=== PATIENT | female | born 1985 | race Caucasian/White ===

== ENCOUNTER 2023-03-30 09:43 | Outpatient (AMB) | payer OTHER, SELFPAY ==
--- NOTE | 2023-03-30 09:51 | MHC.PC.OV ---
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 pt thinks she had a pap at [facility] in 2020 and will call for appt Is last menstrual period known: Yes Last menstrual period: 03/25/23 Allergies Sulfa (Sulfonamide Antibiotics) Allergy (Intermediate, Verified 03/30/23 10:12) Eye Swelling Medication List - Last Reconciled 03/30/23 by Isela Roland MD No Known Home Meds Tobacco use date assessed: 03/30/23 Dental Screening Dental Screen Date: 03/30/23 Did you have a dental visit in the last 12 months?: No Did you have a dental problem in the last 6 months where you did not have access to dental care?: No Was dental information given to patient?: No 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 She has no known medical history. She goes to [facility] for her routine Pap, last done 2019, per patient. She is up-to-date with her COVID booster and her flu shot , and states that she received her Tdap when she was with her child in 2019. She has no specific complaints, except for having intermittent episodes of fatigue over the last several months. [facility] Medical History (Updated 04/01/23 @ 17:35 by Isela Roland MD) No pertinent past medical history Surgical History (Updated 04/01/23 @ 17:35 by Isela Roland MD) No pertinent past surgical history Family History (Updated 03/30/23 @ 10:19 by Isela Roland MD) Maternal Uncle Mental health disorder Maternal Aunt Mental health disorder Breast cancer Lung cancer Maternal Grandmother Breast cancer Social History Housing: House Patient Tobacco Use Status: Never used Tobacco e-Cigarette/Vaping Use: Never Used Second Hand Smoke Exposure: No service: No Current occupational status: employed Current occupation: [employer] Current occupational exposures/hazards: No Cognitive needs: No Hearing needs: No Vision needs: No Female Reproductive History Menstrual Date of last menstrual period: 03/25/23 Questionnaire PHQ-9 Over the last 2 weeks, how often have you been bothered by any of the following problems? 1. Little interest or pleasure in doing things: not at all 2. Feeling down, depressed, or hopeless: not at all 3. Trouble falling or staying asleep, or sleeping too much: not at all 4. Feeling tired or having little energy: nearly every day 5. Poor appetite or overeating: not at all 6. Feeling bad about yourself - or that you are a failure or have let yourself or your family down: not at all 7. Trouble concentrating on things, such as reading the newspaper or watching television: not at all 8. Moving or speaking so slowly that other people could have noticed. Or the opposite - being so fidgety or restless that you have been moving around a lot more than usual: not at all 9. Thoughts that you would be better off or of hurting yourself in some way: not at all Total score: 3 Depression Screening Interpretation: Negative Depression Screening Done: Yes 27606 - PHQ-9 Billing: Yes Source: Developed by Drs. Yony Blevins, Ashley Cameron, Hubert Peter and colleagues, with an educational adelfo from [employer]. Thrive Questionnaire Date Thrive assessed: 03/30/23 I am a: Patient What is your living situation today?: I have a steady place to live Within the past 12 months, did the food you bought not last and you didn't have the money to get more?: Never true Within the past 12 months, did you worry whether your food would run out before you got money to buy more?: Never true Do you have trouble paying for medicines?: No Do you have trouble getting transportation to medical appointments?: No Do you have trouble paying your heating and electricity bill?: No Do you have trouble taking care of your child, family member or friend?: No Do you have trouble with day-to-day activities such as bathing, preparing meals, shopping, managing finances, etc.?: No Are you currently unemployed and looking for a job?: No Are you interested in more education?: No AUDIT C Alcohol Use Questionnaire (AUDIT-C) 1. How often do you have a drink containing alcohol?: 2-3 times a week 2. How many drinks containing alcohol do you have on a typical day when you are drinking?: 1 or 2 3. How often do you have six or more drinks on one occasion?: Never Total Score: 3 BRYAN-7 AMB Questionnaire BRYAN-7 Date BRYAN - 7 assessed: 03/30/23 Feeling nervous, anxious, or on edge: 0 = Not at all Not being able to stop or control worryin = Not at all Worrying too much about different things: 0 = Not at all Trouble relaxin = Not at all Being so restless that it is hard to sit still: 0 = Not at all Becoming easily annoyed or irritable: 0 = Not at all Feeling afraid as if something awful might happen: 0 = Not at all Total BRYAN-7 score (0-4 normal; 5-9 mild; 10-14 moderate; 15-21 severe): 0 Source: Developed by Drs. Yony Blevins, Ashley Cameron, Hubert Peter and colleagues, with an educational adelfo from [employer]. BRYAN-7 Assessment Billing BRYAN-7 Assessment Tool: BRYAN-7 Assessment 55968 Review of Systems Const Denies body aches, Denies fatigue, Denies fever(s), Denies headache(s) and Denies weakness Eyes Denies change in vision, Denies eye discharge and Denies itchy eyes ENT Denies dizziness, Denies headache(s), Denies nasal congestion, Denies nasal discharge and Denies sore throat Card Denies chest pain, Denies lightheadedness, Denies palpitations and Denies dyspnea Resp Denies chest congestion, Denies cough, Denies dyspnea and Denies wheezing GI Denies abdominal pain, Denies change in bowel habits and Denies heartburn Denies hematuria, Denies urinary frequency, Denies dysuria and Denies urinary urgency Musc Reports no additional complaints Skin/Breast Denies breast pain, Denies breast mass, Denies lesions and Denies rash Neuro Denies dizziness, Denies headache(s) and Denies weakness Psych Reports no additional complaints Endo Denies fatigue, Denies polydipsia, Denies polyuria and Denies palpitations Cong/Lymph Denies easy bruising Aller/Immun Denies itchy eyes, Denies seasonal rhinorrhea and Denies wheezing Physical exam (Primary Care) Vital Signs: Last Vital Signs Pulse 84 03/30/23 09:52 BP 102/68 03/30/23 09:52 Pulse Ox 100 03/30/23 09:52 Oxygen Delivery Method Room Air 03/30/23 09:52 BMI result Body Mass Index 24.0 Tobacco/Smoking Status: Tobacco use Status Tobacco use date assessed 03/30/23 03/30/23 09:59 Patient Tobacco Use Status Never used Tobacco 03/30/23 09:59 e-Cigarette/Vaping Use Never Used 03/30/23 09:59 PHQ-9: PHQ-9 Score PHQ-9: Total score 3 03/30/23 10:34 Depression Screening Interpretation: Negative Thrive Assessment: Date of Thrive Assessment Date Thrive assessed 03/30/23 03/30/23 10:34 Const General: no acute distress and alert Nutritional Appearance: average body habitus Orientation/consciousness: patient oriented x3 HENMT Head: Yes normocephalic and Yes atraumatic Ears: external ears normal, TM's normal bilaterally and EAC's normal General nose exam: Normal external nose present and No nasal discharge present Face and sinus: Yes face symmetric Mouth: Normal oral and palatal mucosa present, lip normal, tongue normal, oropharynx normal and moist mucous membranes Eyes General: appearance normal, both eyes and all related structures Eyelids: Yes eyelids normal Conjunctivae: conjunctivae normal Sclerae: sclerae normal Pupils: Equal, round and reactive pupils present EOM: EOMs intact bilaterally Neck Neck: Yes full ROM, Yes no lymphadenopathy and Yes supple Thyroid: Thyroid normal Chest Chest palpation & inspection: normal inspection of the chest Breast/axilla inspection: normal inspection of the breasts Breast/axilla palpation: normal palpation of the breasts Resp Effort & Inspection: normal respiratory effort and able to speak in complete sentences Auscultation: clear to auscultation bilaterally Cardio Rate: regular rate Rhythm: regular rhythm Heart sounds: S1 normal heart sound present and S2 normal heart sound present GI Palpation (GI): Soft to palpation, nontender, no guarding and no masses Auscultation: normal bowel sounds General: Yes no CVA tenderness and Yes deferred (Will be scheduling her own appointment with OBGYN looking to going [facility]) Back/Spine/Pelvis Back: no CVA tenderness and No back tenderness Skin General skin exam: no rashes or lesions noted Neuro General: patient oriented x3, gait normal, moves all extremities, Normal light touch and pain sensation, no focal motor deficits and CN's II-XI intact bilaterally Cranial nerves: Yes Equal, round and reactive pupils present Cognition (Neuro): normal cognition Gait exam (Neuro): Normal gait present Motor exam (neuro): 5/5 motor strength present throughout Extrem General: Yes normal to inspection, Yes full ROM, Yes no joint enlargement, Yes no pedal edema and Yes normal gait Psych Appearance: grossly normal and well kempt Mental Status: mental status grossly normal Speech and movement: Normal speech and movement present Affect: normal affect Attitude: cooperative Thought process: Normal thought process present Thought content: Normal thought content present Assessment and Plan Assessment & Plan (1) Annual visit for general adult medical examination with abnormal findings: Code(s): Z. - Encounter for general adult medical examination with abnormal findings Plan: Will check appropriate labs. Recommended dental visit every 6 months and regular eye exams, at least every 2 years. Take adequate calcium in diet and vitamin-D 3 at 2000 IU per cap once a day, in addition to weight-bearing exercises to help maintain good muscle tone and weight control. Instructed to do self-breast exam, and recommended to get yearly mammogram, starting at age 40. Patient states she will schedule appointment with OBGYN at [facility] for her routine Pap and pelvic exam. She is up-to-date with her COVID booster, flu shot and her Tdap. (2) Fatigue: Code(s): R53.83 - Other fatigue Qualifiers: Fatigue type: unspecified Qualified Code(s): R53.83 - Other fatigue Plan: Labs ordered today to check CBC, thyroid stimulating hormone with free T4, vitamin B12 and folic acid level, vitamin-D, compressive metabolic panel and Lyme titer. Orders: Orders TSH reflex Free T4 03/30/23 R53.83 - Other fatigue, Z. - Encounter for general adult medical examination with abnormal findings Vitamin B12 and Folate 03/30/23 R53.83 - Other fatigue, Z. - Encounter for general adult medical examination with abnormal findings Lipid Panel 03/30/23 R53.83 - Other fatigue, Z. - Encounter for general adult medical examination with abnormal findings Vitamin D 25-OH Total 03/30/23 R53.83 - Other fatigue, Z00.01 - Encounter for general adult medical examination with abnormal findings Complete Blood Count Auto Diff 03/30/23 R53.83 - Other fatigue, Z00.01 - Encounter for general adult medical examination with abnormal findings Comprehensive [place]. Panel Fast 03/30/23 R53.83 - Other fatigue, Z00.01 - Encounter for general adult medical examination with abnormal findings Lyme IgG/IgM w/reflex to WB 03/30/23 R53.83 - Other fatigue Coding Level of Care Code New Pt Prev Care 18-39yr([id number] Diagnoses Annual visit for general adult medical examination with abnormal findings Z00.01 Fatigue, unspecified type R53.83 Fatigue type: unspecified Additional Codes BRYAN-7 Assessment Billing - BRYAN-7 Assessment Tool: BRYAN-7 Assessment [id number] ([id number])
[2023-03-30 09:52] VITALS: BP 102/68; PULSE 84; O2SAT 100; BMI 24.0
== END 2023-03-30 10:32 | disposition home or self-care (01) ==
PROVIDERS: PCP Internal Medicine; Visit Provider Internal Medicine
DX: Z00.00 Encounter for general adult medical examination without abnormal findings (principal); R53.83 Other fatigue
CPT/HCPCS: 99385

== ENCOUNTER 2023-04-02 08:02 | Outpatient (REF) | payer OTHER, SELFPAY ==
[2023-04-02 12:03] LABS: MANUAL DIFF FLAG NO
[2023-04-02 12:13] LABS: Basophils Absolute Auto 0.1 X10*3/uL (0.0-0.2); Basophils Percent Auto 1.1 % (0-2); Eosinophils Absolute Auto 0.1 X10*3/uL (0.0-0.4); Eosinophils Percent Auto 2.5 % (0-4); Hematocrit 43.8 % (37.0-47.0); Hemoglobin 14.7 g/dl (12.0-16.0); Imm Gran Abs Auto 0.02 X10*3/uL (0.00-0.03); Imm Gran Pct Auto 0.4 % (0.0-0.4); Lymphocytes Absolute Auto 1.6 X10*3/uL (1.2-4.9); Lymphocytes Percent Auto 33.8 % (20-40); Mean Corpuscular HGB Conc 33.6 g/dl (31.0-35.0); Mean Corpuscular Hemoglobin 30.2 pg (27.0-33.0); Mean Corpuscular Volume 89.9 fL (80.0-98.0); Mean Platelet Volume 9.9 fL (9.4-12.3); Monocytes Absolute Auto 0.3 X10*3/uL (0.1-1.2); Monocytes Percent Auto 7.1 % (2-11); Neutrophils Absolute Auto 2.6 x10*3/uL (2.0-8.3); Neutrophils Percent Auto 55.1 % (45-73); Platelet Count 307 X10*3/uL (160-400); Red Blood Count 4.87 X10*6/uL (4.20-5.50); Red Cell Distribution Width 11.9 % (11.0-16.0); White Blood Count 4.8 X10*3/uL (4.8-10.8)
[2023-04-02 12:53] LABS: Alanine Aminotransferase 9 U/L (0-31); Albumin Level 4.1 g/dL (3.5-5.0); Alkaline Phosphatase 45 U/L (39-117); Anion Gap 12 (12-20); Aspartate Amino Transferase 17 U/L (5-31); Bilirubin Total 0.4 mg/dL (0.0-1.0); Blood Urea Nitrogen 11 mg/dL (9-16); Calcium 9.4 mg/dL (8.4-10.2); Carbon Dioxide 26 mmol/L (22-29); Chloride 104 mmol/L (96-108); Cholesterol 202 mg/dL (<200); Estimated Glomerular Filt Rate > 60; Glucose Fasting 83 mg/dL (60-99); HDL Cholesterol 58 mg/dL (>40); LDL Cholesterol Calculated 121 mg/dL (<100); Sodium 138 mmol/L (135-145); Total Protein 7.5 g/dL (6.5-8.0); Triglycerides 117 mg/dL (<150)
[2023-04-02 12:55] LABS: TSH reflex Free T4 2.01 uIU/mL (0.32-4.0); Vitamin D 25-OH Total 56.5 ng/mL (>30)
[2023-04-02 13:00] LABS: Folate 11.1 ng/mL (> or = 4.0); Vitamin B12 678 pg/mL (200-900)
[2023-04-05 05:23] LABS: Lyme Abs Screen <0.90 index
== END 2023-04-02 08:03 | disposition home or self-care (01) ==
LOC: HO.HMGCLDS 08:02
PROVIDERS: PCP Internal Medicine; Visit Provider Internal Medicine
DX: Z00.01 Encounter for general adult medical examination with abnormal findings (principal); R53.83 Other fatigue
CPT/HCPCS: 36415; 80053; 80061; 82306; 82607; 82746; 84443; 85025; 86617; 86618

== ENCOUNTER 2024-03-31 08:08 | Outpatient (REF) | payer OTHER, SELFPAY ==
[2024-03-31 10:37] LABS: Cholesterol 201 mg/dL (<200); Glucose Fasting 88 mg/dL (60-99); HDL Cholesterol 66 mg/dL (>40); LDL Cholesterol Calculated 115 mg/dL (<100); Triglycerides 102 mg/dL (<150)
== END 2024-03-31 08:09 | disposition home or self-care (01) ==
LOC: HO.HMGCLDS 08:08
PROVIDERS: PCP Internal Medicine; Visit Provider Internal Medicine
DX: Z13.220 Encounter for screening for lipoid disorders (principal); Z13.1 Encounter for screening for diabetes mellitus
CPT/HCPCS: 36415; 80061; 82947

== ENCOUNTER 2024-04-04 14:53 | Outpatient (AMB) | payer OTHER, SELFPAY ==
--- NOTE | 2024-04-04 14:57 | A.OFFPC_ITS ---
Vital Signs 04/04/24 14:58 Height 5 ft 7 in Weight 163 lb BMI 25.5 BP 110/70 Blood Pressure Location Rt brachial Position Sitting Pulse 64 Pulse Source Pulse Oximeter Pulse Oximetry (%) 98 Oxygen Delivery Method Room Air Intake Visit Reasons: PE Intake Note: pt is here for annual exam Sub Master Required: No Allergies Sulfa (Sulfonamide Antibiotics) Allergy (Intermediate, Verified 04/04/24 14:58) Eye Swelling Medication List - Last Reconciled 04/04/24 by Serina Camarillo NP No Known Home Meds Tobacco use date assessed: 04/04/24 Dental Screening Dental Screen Date: 04/04/24 Did you have a dental visit in the last 12 months?: Yes Did you have a dental problem in the last 6 months where you did not have access to dental care?: No Was dental information given to patient?: Patient has dentist HPI HPI Comments History of Present Illness Details 38 y/o female patient who presents today for PE. She is a patient of Dr. Roland. Patient is healthy with medical problems and she does not take routine medications. LMP: Currently on her period. Sexually active with 1 male partner - uses condoms. Last PAP: 2019 NILM Neg HPV PFSH Medical History No pertinent past medical history Surgical History No pertinent past surgical history Family History Maternal Uncle Mental health disorder Maternal Aunt Mental health disorder Breast cancer Lung cancer Maternal Grandmother Breast cancer Social History Housing: House Patient Tobacco Use Status: Never used Tobacco e-Cigarette/Vaping Use: Never Used Second Hand Smoke Exposure: No service: No Current occupational status: employed Current occupation: [employer] Current occupational exposures/hazards: No Cognitive needs: No Hearing needs: No Vision needs: No Questionnaire PHQ-9 Over the last 2 weeks, how often have you been bothered by any of the following problems? 1. Little interest or pleasure in doing things: not at all 2. Feeling down, depressed, or hopeless: not at all 3. Trouble falling or staying asleep, or sleeping too much: not at all 4. Feeling tired or having little energy: not at all 5. Poor appetite or overeating: not at all 6. Feeling bad about yourself - or that you are a failure or have let yourself or your family down: not at all 7. Trouble concentrating on things, such as reading the newspaper or watching television: not at all 8. Moving or speaking so slowly that other people could have noticed. Or the opposite - being so fidgety or restless that you have been moving around a lot more than usual: not at all 9. Thoughts that you would be better off or of hurting yourself in some way: not at all Total score: 0 Depression Screening Interpretation: Negative Depression Screening Done: Yes 83393 - PHQ-9 Billing: Yes Source: Developed by Drs. Yony Blevins, Ashley Cameron, Hubert Peter and colleagues, with an educational adelfo from [employer]. Thrive Questionnaire Date Thrive assessed: 04/04/24 I am a: Patient What is your living situation today?: I have a steady place to live Within the past 12 months, did the food you bought not last and you didn't have the money to get more?: I choose not to answer this question Within the past 12 months, did you worry whether your food would run out before you got money to buy more?: I choose not to answer this question Do you have trouble paying for medicines?: I choose not to answer this question Do you have trouble getting transportation to medical appointments?: I choose not to answer this question Do you have trouble paying your heating and electricity bill?: I choose not to answer this question Do you have trouble taking care of your child, family member or friend?: I choose not to answer this question Do you have trouble with day-to-day activities such as bathing, preparing meals, shopping, managing finances, etc.?: I choose not to answer this question Are you currently unemployed and looking for a job?: I choose not to answer this question Are you interested in more education?: I choose not to answer this question Please select the resources that you would like help with: None Currently or been in a relationship where the following occur: No concerns reported THRIVE Score: 0 AUDIT C Alcohol Use Questionnaire (AUDIT-C) 1. How often do you have a drink containing alcohol?: Monthly or less 2. How many drinks containing alcohol do you have on a typical day when you are drinking?: 1 or 2 3. How often do you have six or more drinks on one occasion?: Never Total Score: 1 Score Reviewed/Action Taken: Yes BRYAN-7 AMB Questionnaire BRYAN-7 Date BRYAN - 7 assessed: 04/04/24 Feeling nervous, anxious, or on edge: 0 = Not at all Not being able to stop or control worryin = Not at all Worrying too much about different things: 0 = Not at all Trouble relaxin = Not at all Being so restless that it is hard to sit still: 0 = Not at all Becoming easily annoyed or irritable: 0 = Not at all Feeling afraid as if something awful might happen: 0 = Not at all Total BRYAN-7 score (0-4 normal; 5-9 mild; 10-14 moderate; 15-21 severe): 0 Source: Developed by Drs. Yony Blevins, Ashley Cameron, Hubert Peter and colleagues, with an educational adelfo from [employer]. BRYAN-7 Assessment Billing BRYAN-7 Assessment Tool: BRYAN-7 Assessment 26028 Review of Systems Const All systems reviewed & are unremarkable except as noted in HPI and below Physical exam (Primary Care) Vital Signs: Last Vital Signs Pulse 64 04/04/24 14:58 BP 110/70 04/04/24 14:58 Pulse Ox 98 04/04/24 14:58 Oxygen Delivery Method Room Air 04/04/24 14:58 BMI result Body Mass Index 25.5 Tobacco/Smoking Status: Tobacco use Status Tobacco use date assessed 04/04/24 04/04/24 15:00 Patient Tobacco Use Status Never used Tobacco 04/04/24 15:00 e-Cigarette/Vaping Use Never Used 04/04/24 15:00 PHQ-9: PHQ-9 Score PHQ-9: Total score 0 04/04/24 15:34 Depression Screening Interpretation: Negative Thrive Assessment: Date of Thrive Assessment Date Thrive assessed 04/04/24 04/04/24 15:00 Currently or been in a relationship where the following occur: No concerns reported Const General: cooperative, comfortable and no acute distress Nutritional Appearance: well nourished Orientation/consciousness: patient oriented x3 HENMT Head: Yes normocephalic Ears: external ears normal and TM's normal bilaterally General nose exam: Normal external nose present and Normal nasal mucous membranes and turbinates present Face and sinus: Yes sinuses nontender Mouth: moist mucous membranes Throat: Yes tonsils normal and Yes uvula midline Eyes Pupils: Equal, round and reactive pupils present EOM: EOMs intact bilaterally Neck Neck: Yes full ROM and Yes no lymphadenopathy Thyroid: Thyroid normal and no masses Chest Chest palpation & inspection: no crepitus Resp Effort & Inspection: normal respiratory effort and able to speak in complete sentences Auscultation: clear to auscultation bilaterally, no crackles, no rales, no rhonchi and no wheezes Cardio Heart sounds: S1 normal heart sound present and S2 normal heart sound present GI Inspection: Yes normal to inspection Palpation (GI): Soft to palpation, not firm, nontender, no guarding, not rigid and No hepatosplenomegaly present General: Yes no CVA tenderness and Yes deferred Back/Spine/Pelvis Back: no CVA tenderness Skin General skin exam: no rashes or lesions noted Neuro General: patient oriented x3, gait normal and moves all extremities Cranial nerves: Yes Equal, round and reactive pupils present Motor exam (neuro): 5/5 motor strength present throughout Extrem General: Yes full ROM Psych Speech and movement: Normal speech and movement present Coding Level of Care Code Est Pt Prev Care 18-39y([id number]) Diagnoses Encounter for routine adult health examination without abnormal findings Z00.00 Additional Codes BRYAN-7 Assessment Billing - BRYAN-7 Assessment Tool: BRYAN-7 Assessment [id number] ([id number]) Time Spent (min) 30 Assessment & Plan Assessment & Plan (1) Encounter for routine adult health examination without abnormal findings: Code(s): Z00.00 - Encounter for general adult medical examination without abnormal findings Plan: Healthy, Exam WNL.
[2024-04-04 14:58] VITALS: BP 110/70; PULSE 64; O2SAT 98; BMI 25.5
== END 2024-04-04 15:28 | disposition home or self-care (01) ==
LOC: HO.HMCC 14:54
PROVIDERS: PCP Internal Medicine; Visit Provider Nurse Practitioner Family
DX: Z00.00 Encounter for general adult medical examination without abnormal findings (principal)

== ENCOUNTER → 2024-04-04 14:53 | Outpatient (BNVA) | payer OTHER, SELFPAY | PROVIDERS: PCP Internal Medicine; Visit Provider Nurse Practitioner Family | DX: Z00.00 Encounter for general adult medical examination without abnormal findings (principal) | CPT/HCPCS: 96127 ==

== ENCOUNTER 2025-05-13 08:50 | Outpatient (AMB) | payer OTHER, SELFPAY ==
--- NOTE | 2025-05-13 09:21 | MHC.PC.OV ---
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 Required: No Is last menstrual period known: Yes Last menstrual period: 04/30/25 Allergies Sulfa (Sulfonamide Antibiotics) Allergy (Intermediate, Verified 05/24/25 16:35) Eye Swelling Medication List - Last Reconciled 05/13/25 by Isela Roland MD No Known Home Meds Tobacco use date assessed: 05/13/25 Dental Screening Dental Screen Date: 05/13/25 Did you have a dental visit in the last 12 months?: Yes Did you have a dental problem in the last 6 months where you did not have access to dental care?: No Was dental information given to patient?: Patient has dentist HPI Annual PE HPI Details The patient is a 39-year-old female presenting for an annual physical exam. She has no significant past medical history. The patient reports a new onset of fatigue that started sometime this year, describing it as feeling tired all the time, regardless of the amount of sleep she gets. She denies feeling rested upon waking, but sleeps through the night without frequent awakenings and denies snoring. The patient endorses a history of depression and anxiety but states she has not actively felt these symptoms lately, though she acknowledges her job in [employer] has been stressful this year. She exercises on a stationary bike about twice a week. Her last menstrual period was around April 30, and her cycles are regular and not heavy. She does not take any vitamins and uses no form of control, including condoms. Regarding preventative care, the patient sees Florin REYES for her Pap smears, with her last visit being within the past two years, and all prior Pap smears have been normal. Her maternal grandmother had breast cancer in her 60s, and the patient has never had a mammogram. She had a normal vaginal delivery of her now [id number] child in [place] and did breastfeed. Previous labs showed normal cholesterol, sugar, and vitamin D levels. The patient underwent LASIK surgery in [place] in 2018. She experienced a significant complication the day after the procedure, where her cornea detached due to severe eye dryness, but it has since healed without current issues. 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 There is no known family history of thyroid disease. She continues to have extremely dry eyes and uses some type of eye drops. [facility] Medical History No pertinent past medical history Surgical History No pertinent past surgical history Family History Maternal Uncle Mental health disorder Maternal Aunt Mental health disorder Breast cancer Lung cancer Maternal Grandmother Breast cancer Social History Housing: House Patient Tobacco Use Status: Never used Tobacco e-Cigarette/Vaping Use: Never Used Second Hand Smoke Exposure: No service: No Current occupational status: employed Current occupation: [employer] Current occupational exposures/hazards: No Cognitive needs: No Hearing needs: No Vision needs: No Female Reproductive History Menstrual Date of last menstrual period: 04/30/25 control method: none Questionnaire PHQ-9 Over the last 2 weeks, how often have you been bothered by any of the following problems? 1. Little interest or pleasure in doing things: not at all 2. Feeling down, depressed, or hopeless: not at all 3. Trouble falling or staying asleep, or sleeping too much: not at all 4. Feeling tired or having little energy: not at all 5. Poor appetite or overeating: not at all 6. Feeling bad about yourself - or that you are a failure or have let yourself or your family down: not at all 7. Trouble concentrating on things, such as reading the newspaper or watching television: not at all 8. Moving or speaking so slowly that other people could have noticed. Or the opposite - being so fidgety or restless that you have been moving around a lot more than usual: not at all 9. Thoughts that you would be better off or of hurting yourself in some way: not at all Total score: 0 Depression Screening Interpretation: Negative Depression Screening Done: Yes 39939 - PHQ-9 Billing: Yes Source: Developed by Drs. Yony Blevins, Ashley Cameron, Hubert Peter and colleagues, with an educational adelfo from [employer]. Thrive Questionnaire Date Thrive assessed: 04/04/24 I am a: Patient What is your living situation today?: I have a steady place to live Within the past 12 months, did the food you bought not last and you didn't have the money to get more?: Never true Within the past 12 months, did you worry whether your food would run out before you got money to buy more?: Never true Do you have trouble paying for medicines?: No Do you have trouble getting transportation to medical appointments?: No Do you have trouble paying your heating and electricity bill?: No Do you have trouble taking care of your child, family member or friend?: No Do you have trouble with day-to-day activities such as bathing, preparing meals, shopping, managing finances, etc.?: No Are you currently unemployed and looking for a job?: No Are you interested in more education?: No Please select the resources that you would like help with: None Currently or been in a relationship where the following occur: No concerns reported THRIVE Score: 0 AUDIT C Alcohol Use Questionnaire (AUDIT-C) 1. How often do you have a drink containing alcohol?: 2-4 times a month 2. How many drinks containing alcohol do you have on a typical day when you are drinking?: 1 or 2 3. How often do you have six or more drinks on one occasion?: Never Total Score: 2 BRYAN-7 AMB Questionnaire BRYAN-7 Date BRYAN - 7 assessed: 04/04/24 Feeling nervous, anxious, or on edge: 0 = Not at all Not being able to stop or control worryin = Not at all Worrying too much about different things: 0 = Not at all Trouble relaxin = Not at all Being so restless that it is hard to sit still: 0 = Not at all Becoming easily annoyed or irritable: 0 = Not at all Feeling afraid as if something awful might happen: 0 = Not at all Total BRYAN-7 score (0-4 normal; 5-9 mild; 10-14 moderate; 15-21 severe): 0 Source: Developed by Drs. Yony Blevins, Ashley Cameron, Hubert Peter and colleagues, with an educational adelfo from [employer] BRYAN-7 Assessment Billing BRYAN-7 Assessment Tool: BRYAN-7 Assessment 77096 Review of Systems Const Details: lasik surgery in 2018 in [facility] Denies body aches, Denies fever(s), Denies headache(s) and Denies weakness Eyes Denies change in vision, Denies eye discharge and Denies itchy eyes ENT Denies dizziness, Denies headache(s), Denies nasal congestion, Denies nasal discharge and Denies sore throat Card Denies chest pain, Denies lightheadedness, Denies palpitations and Denies dyspnea Resp Denies chest congestion, Denies cough, Denies dyspnea and Denies wheezing GI Denies abdominal pain, Denies change in bowel habits and Denies heartburn Denies hematuria, Denies urinary frequency, Denies dysuria and Denies urinary urgency Musc Reports no additional complaints Skin/Breast Denies breast pain, Denies breast mass, Denies lesions and Denies rash Neuro Denies dizziness, Denies headache(s) and Denies weakness Psych Reports no additional complaints Endo Denies polydipsia, Denies polyuria and Denies palpitations Cong/Lymph Denies easy bruising Aller/Immun Denies itchy eyes, Denies seasonal rhinorrhea and Denies wheezing Physical exam (Primary Care) Vital Signs: Last Vital Signs Temp 98.3 F 05/13/25 09:28 Pulse 69 05/13/25 09:28 Resp 16 05/13/25 09:28 BP 102/70 05/13/25 09:28 Pulse Ox 97 05/13/25 09:28 Oxygen Delivery Method Room Air 05/13/25 09:28 BMI result Body Mass Index 26.6 Tobacco/Smoking Status: Tobacco use Status Tobacco use date assessed 05/13/25 05/13/25 09:22 Patient Tobacco Use Status Never used Tobacco 05/13/25 09:22 e-Cigarette/Vaping Use Never Used 05/13/25 09:22 PHQ-9: PHQ-9 Score PHQ-9: Total score 0 05/13/25 09:49 Depression Screening Interpretation: Negative Thrive Assessment: Date of Thrive Assessment Date Thrive assessed 04/04/24 05/13/25 09:22 Currently or been in a relationship where the following occur: No concerns reported Advance Care Planning discussion: Completed/Scanned Date of discussion: 05/13/25 Who was present: Patient Forms completed: Health Care Proxy Time spent: 16-45 minutes Actual minutes spent: 1 Const General: cooperative, comfortable and no acute distress Nutritional Appearance: well nourished Orientation/consciousness: patient oriented x3 HENMT Head: Yes normocephalic Ears: external ears normal and TM's normal bilaterally General nose exam: Normal nasal mucous membranes and turbinates present Mouth: moist mucous membranes Eyes Pupils: Equal, round and reactive pupils present EOM: EOMs intact bilaterally Neck Neck: Yes full ROM and Yes no lymphadenopathy Thyroid: Thyroid normal and no masses Chest Chest palpation & inspection: no crepitus Resp Effort & Inspection: normal respiratory effort and able to speak in complete sentences Auscultation: clear to auscultation bilaterally and no wheezes Cardio Heart sounds: S1 normal heart sound present and S2 normal heart sound present GI Inspection: Yes normal to inspection Palpation (GI): Soft to palpation, nontender, no guarding and No hepatosplenomegaly present General: Yes no CVA tenderness and Yes deferred Back/Spine/Pelvis Back: no CVA tenderness Skin General skin exam: no rashes or lesions noted Neuro General: patient oriented x3, gait normal and moves all extremities Cranial nerves: Yes Equal, round and reactive pupils present Motor exam (neuro): 5/5 motor strength present throughout Extrem General: Yes full ROM Psych Speech and movement: Normal speech and movement present Coding Level of Care Code Est Pt Prev Care 18-39y(89430) Diagnoses Annual visit for general adult medical examination with abnormal findings Z00. Fatigue, unspecified type R53.83 Fatigue type: unspecified Advance directive discussed with patient Z71.89 Additional Codes PHQ-9 - 13885 - PHQ-9 Billing: Yes ([id number]) BRYAN-7 Assessment Billing - BRYAN-7 Assessment Tool: BRYAN-7 Assessment 08850 ([id number]) Vital Signs *Quality* - Advance Care Planning discussion: Completed/Scanned ([id number]) Vital Signs *Quality* - Time spent: 16-45 minutes ([id number]) Assessment & Plan Assessment & Plan (1) Annual visit for general adult medical examination with abnormal findings: Code(s): Z00.01 - Encounter for general adult medical examination with abnormal findings Plan: The patient is a 39-year-old female here for a wellness visit. A physical exam was performed. Lab work, including a CBC to evaluate for anemia, a fasting glucose, a cholesterol panel, a vitamin D level, and a TSH, was ordered. The patient received her flu and COVID-19 booster vaccines in March 2023. She is up to date on her Tdap. A healthcare proxy form was provided. She will be advised to schedule her next physical for the following year. A consent form was signed to obtain records from her OB-SURVEYOR (2) Fatigue: Code(s): R53.83 - Other fatigue Qualifiers: Fatigue type: unspecified Qualified Code(s): R53.83 - Other fatigue Plan: The patient reports new-onset fatigue. The differential diagnosis includes anemia, hypothyroidism, and vitamin D deficiency. Lab work has been ordered to investigate these possibilities. 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 Follow up on lab results. (3) Advance directive discussed with patient: Code(s): Z71.89 - Other specified counseling Plan: Initiated the conversation about Advanced Directives. Advanced Directives help patients prepare for current and future decisions about their medical treatment and place of care. Discussed with patient that it is a process where a patients current condition and prognosis are reviewed, their wishes for information regarding their illness are elicited, and likely medical dilemmas are presented and options discussed. Healthcare proxy form completed today. The form can be amended as needed, reviewed yearly and make changes as needed Orders: Orders Complete Blood Count Auto Diff 05/18/25 Z00. - Encounter for general adult medical examination without abnormal findings Lipid Panel 05/18/25 Z00. - Encounter for general adult medical examination without abnormal findings TSH reflex Free T4 05/18/25 Z00.00 - Encounter for general adult medical examination without abnormal findings Glucose Fasting 05/18/25 Z00.00 - Encounter for general adult medical examination without abnormal findings Vitamin D 25-OH Total 05/18/25 Z00. - Encounter for general adult medical examination without abnormal findings
[2025-05-13 09:28] VITALS: BP 102/70; PULSE 69; RESP 16; TEMP 36.8; O2SAT 97; BMI 26.6
== END 2025-05-13 10:23 | disposition home or self-care (01) ==
LOC: HO.HMCC 08:51
PROVIDERS: PCP Internal Medicine; Visit Provider Internal Medicine
DX: Z00.01 Encounter for general adult medical examination with abnormal findings (principal); R53.83 Other fatigue; Z71.89 Other specified counseling; Z00.00 Encounter for general adult medical examination without abnormal findings

== ENCOUNTER → 2025-05-13 08:50 | Outpatient (BNVA) | payer OTHER, SELFPAY | PROVIDERS: PCP Internal Medicine; Visit Provider Internal Medicine | DX: Z13.31 Encounter for screening for depression (principal) | CPT/HCPCS: 96127 ==

== ENCOUNTER 2025-05-18 07:54 | Outpatient (REF) | payer OTHER, SELFPAY ==
--- OUTSIDE RECORDS SUMMARY | 2025-05-18 07:58 | XMS_ITS | Clinical Summary ---
Author Organization [facility] Address [address] [place] [id number] Phone Care Team Providers Care Senior Web Engineer Name Role Phone Pcp, Unknown Primary Care Provider Unavailabl e Allergies Active Allergy Reactions Criticality Noted Date Comments Sulfa (Sulfonamide Antibiotics) Swelling 11/2023 Medications No known medications Family History Medical History Relation Comments Breast cancer Maternal Aunt Lung cancer Maternal Aunt Breast cancer Maternal Grandmother Relation Status Comments Brother Alive Maternal Aunt Maternal Grandfather Maternal Grandmother Mother Alive Social History Tobacco Use Types Packs/Day Years Used Date Smoking Tobacco: Never Smokeless Tobacco: Never Tobacco Cessation:Counseling Given: Not Answered Education Answer Date Recorded Are you interested in more education? Not on aniceto e 08/31/2023 Are you concerned about learning? Not on file 08/31/2023 No 08/31/2023 No 08/31/2023 Digital Access Answer Date Recorded No 08/31/2023 No 08/31/2023 Reliable internet access at home? Not on file 08/31/2023 Device with a working camera? Not on file Comments No Sex and Gender Information Value Date Recorded Sex Assigned at Not on file Legal Sex Female 2:26 PM EDT Gender Identity Not on file Sexual Orientation Not on file Last Filed Vital Signs Vital Sign Reading Time Taken Comments Blood Pressure 120/70 10/08/2023 2:04 PM EDT Pulse - - Temperature - - Respiratory Rate - - Oxygen Saturation - - Inhaled Oxygen Concentration - - Weight 72.3 kg (159 lb 6.4 oz) 10/08/2023 2:04 P M EDT Height 170.2 cm (5' 7 ) 10/08/2023 2:04 PM EDT Body Mass Index 24.97 10/08/2023 2:04 PM EDT Plan of Treatment Health Maintenance Due Date Last Done Comments Adult Td,Tdap Booster 1986 DEPRESSION SCREENING 1998 HEPATITIS C SCREENING 2004 HIV ONE-TIME SCREENING (18-65 YEARS) 2004 PAP SMEAR 08/07/2007 INFLUENZA VACCINE (#1) 2025 , 03/17/2022, 04/29/2021 COVID-19 VACCINE ( season) 2025 03/23/2023, 03/17/2022, 04/29/2021, Additional history exists SMOKING STATUS SCREENING (Once After 26 Yrs) Completed 10/08/2023 HEPATITIS A VACCINES Aged Out No long er eligible based on patient's age to complete this topic HIB VACCINES Aged Out No longer eligi ble based on patient's age to complete this topic MENINGOCOCCAL VACCINES (ACWY) Aged Out No longer eligible based on patient's age to complete this topic MENINGOCOCCAL VACCINES (B) Aged Out N o longer eligible based on patient's age to complete this topic PNEUMOCOCCAL VACCINES (0-49 years) Aged Out No longer eligible based on patient's age to complete this topic Medical Devices Not on file Insurance [facility] HMO [facility] HMO [facility] HMO [facility] HMO [facility] HMO Care Teams Senior Web Engineer Relationship Specialty Start Date End Date Pcp, Unknown PCP - General 08/31/23 Additional Source Comments The information contained in this document represents components of the legal health record. It is not the complete legal health record.[facility]
[2025-05-18 10:07] LABS: MANUAL DIFF FLAG NO
[2025-05-18 10:19] LABS: Hematocrit 43.0 % (37.0-47.0); Hemoglobin 14.5 g/dl (12.0-16.0); Imm Gran Abs Auto 0.02 X10*3/uL (0.00-0.03); Imm Gran Pct Auto 0.5 % (0.0-0.4); Lymphocytes Absolute Auto 1.4 X10*3/uL (1.2-4.9); Mean Corpuscular HGB Conc 33.7 g/dl (31.0-35.0); Mean Corpuscular Hemoglobin 30.0 pg (27.0-33.0); Mean Corpuscular Volume 88.8 fL (80.0-98.0); NRBC Abs Auto 0.000 X10*3/uL (0.0-0.012); NRBC Pct Auto 0.0 /100WBC (0.0-0.2); Platelet Count 221 X10*3/uL (160-400); Red Blood Count 4.84 X10*6/uL (4.20-5.50); White Blood Count 4.3 X10*3/uL (4.8-10.8)
[2025-05-18 10:45] LABS: Cholesterol 219 mg/dL (<200); HDL Cholesterol 73 mg/dL (>40); Triglycerides 133 mg/dL (<150)
== END 2025-05-18 07:55 | disposition home or self-care (01) ==
LOC: HO.HMGCLDS 07:54
PROVIDERS: PCP Internal Medicine; Visit Provider Internal Medicine
DX: Z00.00 Encounter for general adult medical examination without abnormal findings (principal); Z13.1 Encounter for screening for diabetes mellitus; Z13.6 Encounter for screening for cardiovascular disorders; Z13.21 Encounter for screening for nutritional disorder; Z13.29 Encounter for screening for other suspected endocrine disorder
CPT/HCPCS: 36415; 80061; 82306; 82947; 84443; 85025